=== PATIENT | female | born 1945 | race Two or more races ===

== ENCOUNTER 2019-12-25 07:00 | Day surgery (SDC) | payer OTHER ==
[~2019-12-25 07:00] MED LIST: ASPIRIN PO; TOPROL XL25 M1 PO
== END 2019-12-25 18:05 | disposition home or self-care (01) ==
LOC: CIR.AMB 07:00 → EDBD 08:00 → CIR.AMB 10:30
PROVIDERS: ATTEND Orthopaedic Surgery
DX: S42.222A 2-part displaced fracture of surgical neck of left humerus, initial encounter for closed fracture (principal); S46.122A Laceration of muscle, fascia and tendon of long head of biceps, left arm, initial encounter; M75.122 Complete rotator cuff tear or rupture of left shoulder, not specified as traumatic; M75.02 Adhesive capsulitis of left shoulder; Z20.828 Contact with and (suspected) exposure to other viral communicable diseases
CPT/HCPCS: 23630; 23420; 24340; C1776